=== PATIENT | female | born 1995 | race African-American/Black ===

== ENCOUNTER 2016-12-17 12:46 | Emergency (ER) | payer OTHER ==
[~2016-12-17] VITALS: Ht 160 cm; Wt 52.0 kg
[2016-12-17 12:48] VITALS: BP 109/58; PULSE 91; RESP 20; TEMP 98.8; O2SAT 99
--- NOTE | 2016-12-17 15:29 | PD ---
HPI Chief Complaint: GI Complaint Time Seen by Provider: 15:29 Travel History International Travel<30 days: No Contact w/Intl Traveler<30days: No Traveled to known affect area: No History of Present Illness HPI 21-year-old female presents emergency department for evaluation of intermittent diarrhea 3 weeks. Patient denies any fevers, nausea, malaise, lightheadedness or dysuria. Patient denies any major medical history and states she does not take any daily medication. Patient states she is lactose intolerant and has recently eaten cheese. PFS Past Medical History Medical History: Denies Significant Hx Tetanus Vaccination: Unknown Influenza Vaccination: No ?: Not LMP: 11/2016 Past Surgical History Surgical History: No Previous Surgery Social History Alcohol Use: No Tobacco Use: No Substance Use: No Allergies-Medications (Allergen,Severity, Reaction): Coded Allergies: No Known Allergies (Unverified , 12/17/16) Reported Meds & Prescriptions Reported Meds & Active Scripts Active No Active Prescriptions or Reported Medications Review of Systems Except as stated in HPI: all other systems reviewed are Neg Physical Exam Narrative GENERAL: Well-nourished well-developed 21-year-old female in no acute distress. SKIN: Focused skin assessment warm/dry. HEAD: Atraumatic. Normocephalic. EYES: Pupils equal and round. No scleral icterus. No injection or drainage. ENT: No nasal bleeding or discharge. Mucous membranes pink and moist. NECK: Trachea midline. No JVD. CARDIOVASCULAR: Regular rate and rhythm. No murmur appreciated. RESPIRATORY: No accessory muscle use. Clear to auscultation. Breath sounds equal bilaterally. GASTROINTESTINAL: Abdomen soft, non-tender, nondistended. No guarding or rebound tenderness. Hepatic and splenic margins not palpable. MUSCULOSKELETAL: No obvious deformities. No clubbing. No cyanosis. No edema. NEUROLOGICAL: Awake and alert. No obvious cranial nerve deficits. Motor grossly within normal limits. Normal speech. PSYCHIATRIC: Appropriate mood and affect; insight and judgment normal. Data Data Last Documented VS Vital Signs Date Time Temp Pulse Resp B/P (MAP) Pulse Ox O2 Delivery O2 Flow Rate FiO2 12/17/16 12:48 98.8 91 20 109/58 (75) 99 Room Air MDM Medical Decision Making Medical Screen Exam Complete: Yes Emergency Medical Condition: Yes Medical Record Reviewed: Yes Differential Diagnosis Differential diagnoses include but not limited to lactose intolerance, irritable bowel syndrome, gastroenteritis Narrative Course 29-year-old female presents emergency department for evaluation of intermittent diarrhea 3 weeks. Patient states she has approximately one loose stool a week. Patient states she is lactose intolerant has recently started eating cheese. Patient denies fevers, chills, malaise. Patient denies any nausea or vomiting. Based on patient symptoms, clinical presentation, vital sign reveal and physical exam it is not necessary to admit the patient to the hospital or retained the patient in the emergency department for further workup. Patient will be discharged home with instructions to follow-up with her primary care and ensure she drinks enough water, eats enough fresh vegetables and ensures she gets her daily recommended fiber amount. Diagnosis Primary Impression: Irritable bowel syndrome Qualified Codes: K58.0 - Irritable bowel syndrome with diarrhea Additional Impression: Lactose intolerance Referrals: Primary Care Physician Patient Instructions: General Instructions, Irritable Bowel Syndrome (ED) Additional Instructions: Please return to emergency department if your symptoms return or worsen. Follow up with your primary care provider. Stay hydrated by drinking plenty of water, eat plenty of fresh vegetables and ensure you get the recommended daily fiber amount. Scripts No Active Prescriptions or Reported Meds Disposition: DISCHARGE HOME Condition: Stable SumeetVianey Camila MANCERA Dec 17, 2016 15:29
== END 2016-12-17 16:25 | disposition home or self-care (01) ==
LOC: NEPC 12:46
DX: K58.0 Irritable bowel syndrome with diarrhea (principal); E73.9 Lactose intolerance, unspecified
CPT/HCPCS: 99282